=== PATIENT | male | born 1985 | race Two or more races ===

== ENCOUNTER 2017-06-03 23:25 | Emergency (ER) | payer MEDICAID ==
[2017-06-04] MEDS ORDERED: PREDNISONE 20 MG TABLET PO ONE (01:31)
[2017-06-04] MEDS ORDERED: ACYCLOVIR 200 MG CAPSULE PO ONE (01:32)
--- NOTE | 2017-06-04 01:35 | ER Document Report ---
ED General - General Chief Complaint: Back Pain Stated Complaint: BACK PAIN AND FACIAL NUMBNESS Time Seen by Provider: 06/04/17 01:24 Notes: Patient is a 31-year-old male who presents with concerns of a right-sided facial droop that is been present for the past 12 hours. Patient states that the symptoms of gotten progressively worse since onset. No history of similar symptoms in the past. Nothing improves or worsens his facial droop. He denies any weakness or numbness in any other location. Notes he has had a recent upper respiratory symptoms including earache on the right side as well as a recent sore throat. Patient does also complain of 1 week of upper back pain after having a mechanical fall while moving furniture. Describes a constant, dull, aching pain to the bilateral upper mid back. He has not tried anything to improve the pain. Nothing other than movement worsens the pain. He denies any associated lotion to weakness, numbness, bowel or bladder incontinence, urinary retention, or difficulty with ambulation. He denies any history of similar symptoms in the past. He has not seen his primary care doctor regarding today's concerns. TRAVEL OUTSIDE OF THE [place] IN LAST 30 DAYS: No - Related Data Allergies/Adverse Reactions: Penicillins Allergy (Unknown, Verified 05/26/14 14:20) Past Medical History - General Information source: Patient - Social History Smoking Status: Never Smoker Frequency of alcohol use: None Drug Abuse: None Lives with: Spouse/Significant other Family History: Reviewed & Not Pertinent Renal/ Medical History: Denies: Hx Peritoneal Dialysis - Immunizations Hx Diphtheria, Pertussis, Tetanus Vaccination: No Review of Systems - Review of Systems Notes: Constitutional: Negative for fever. HENT: Negative for sore throat. Eyes: Negative for visual changes. Cardiovascular: Negative for chest pain. Respiratory: Negative for shortness of breath. Gastrointestinal: Negative for abdominal pain, vomiting or diarrhea. Genitourinary: Negative for dysuria. Musculoskeletal: Positive for back pain. Skin: Negative for rash. Neurological: Negative for headaches, positive for right sided facial droop 10 point ROS negative except as marked above and in HPI. Physical Exam - Vital signs Vitals: Temp Pulse Resp BP Pulse Ox 98.8 F 88 21 H 165/88 H 97 06/03/17 23:58 06/03/17 23:58 06/03/17 23:58 06/03/17 23:58 06/03/17 23:58 Interpretation: Hypertensive Notes: PHYSICAL EXAMINATION: GENERAL: Well-appearing, well-nourished and in no acute distress. HEAD: Atraumatic, normocephalic. EYES: Pupils equal round and reactive to light, extraocular movements intact, sclera anicteric, conjunctiva are normal. ENT: nares patent, oropharynx clear without exudates. Moist mucous membranes. NECK: Normal range of motion, supple without lymphadenopathy LUNGS: Breath sounds clear to auscultation bilaterally and equal. No wheezes rales or rhonchi. HEART: Regular rate and rhythm without murmurs ABDOMEN: Soft, nontender, normoactive bowel sounds. No guarding, no rebound. No masses appreciated. EXTREMITIES: Normal range of motion, no pitting or edema. No cyanosis. Back: No midline spinal tenderness, step-offs or deformities. Pain on palpation of the bilateral mid perithoracic spine NEUROLOGICAL: Facial nerve paralysis on the right with complete involvement of the right face including the forehead. Mild ptosis of the right eyelid. Tongue protrudes midline. Extraocular motions intact. Pupils are 2 mm and equally reactive. Normal speech, normal gait. 5 out of 5 strength in both the distal and proximal upper and lower extremities bilaterally. Sensation is grossly intact throughout. Finger to nose testing normal. Pronator drift normal. PSYCH: Normal mood, normal affect. SKIN: Warm, Dry, normal turgor, no rashes or lesions noted. Course - Re-evaluation Re-evalutation: 06/04/17 01:31 Presentation is most consistent with a Ann's palsy. Patient has complete involvement including of the forehead. No additional focal neurologic deficits. Presentation and exam are not consistent with an acute stroke. Patient has been started on prednisone and acyclovir. Patient did also complain of 1 week of upper thoracic back pain that is bilateral in nature. This did start after a mechanical fall. No rapid progression of symptoms, systemic symptoms including fevers, chills, weight loss, history of recent bacterial infection, bilateral symptoms, numbness, weakness, difficulty walking , urinary retention or bowel incontinence, personal history of cancer, immunosuppression, diabetes, known AAA, or history of IV drug use. Exam is without point tenderness over vertebral bodies, pulsatile abdominal mass, and patient has symmetric and intact lower extremity strength, sensation, and reflexes without clonus. 2+ symmetric medial malleolar and dorsalis pedis pulses Based on history and physical, I have a very low suspicion of a concerning etiology of pain including epidural compression syndrome, spinal infection, transverse myelitis, malignancy, abdominal aortic aneurysm, renal colic, acute lower extremity claudication, neurogenic claudication, ankylosing spondylitis, or other intra-abdominal process. Due to absence of concerning risk factors in history and physical as well as absence of rapidly progressive, severe, or bilateral symptoms, will defer imaging at this point. At this time will discharge with return precautions and follow-up recommendations. Verbal discharge instructions given a the bedside and opportunity for questions given. Medication warnings reviewed. Patient is in agreement with this plan and has verbalized understanding of return precautions and the need for primary care follow-up in the next 24-72 hours. - Vital Signs Vital signs: Temp Pulse Resp BP Pulse Ox 97.9 F 83 16 146/85 H 97 06/04/17 02:55 06/04/17 02:55 06/04/17 02:55 06/04/17 02:55 06/03/17 23:58 Discharge - Discharge Clinical Impression: Ann's palsy Thoracic back pain Qualifiers: Chronicity: acute Back pain laterality: bilateral Qualified Code(s): M54.6 - Pain in thoracic spine Condition: Good Disposition: HOME, SELF-CARE Additional Instructions: You have been diagnosed with a condition called Ann's palsy. You have not had a stroke. This is inflammation of your facial nerve and should improve over the next several months. Very few cases progress to being permanent. Please take the steroids and antiviral medications that have been prescribed as directed. Complete the course. Please follow-up with your primary care physician in the next several days. Return if you develop spreading weakness, numbness, confusion, headache, neck pain, fever greater than 101F, or any other symptoms that are concerning to you. Prescriptions: Acyclovir [Acyclovir 400 mg Tablet] 400 mg PO 5XD #50 tablet Prednisone [Deltasone 20 mg Tablet] 3 tab PO DAILY 5 Days
[2017-06-04 03:00] VITALS: BP 146/85
== END 2017-06-04 02:00 | disposition home or self-care (01) ==
LOC: ER 23:25
DX: M54.6 Pain in thoracic spine (principal); G51.0 Bell's palsy; H92.01 Otalgia, right ear; J02.9 Acute pharyngitis, unspecified
CPT/HCPCS: 99284; J7512